=== PATIENT | female | born 1985 | race Hispanic/Latino ===

== ENCOUNTER 2020-06-17 10:11 | Inpatient (IN) | payer OTHER ==
[2020-06-17] MEDS ORDERED: METHYLERGONOVINE 0.2MG/ML AMP IM PRN (10:14)
[2020-06-17] MEDS ORDERED: CARBOPROST TROME 250 MCG/ML IM PRN (10:14)
[2020-06-17] MEDS ORDERED: Ringers Lactate 1,000 ML IV PRN (10:14)
[2020-06-17] MEDS ORDERED: CEFAZOLIN 2 GM in NA CHLORIDE 0.9% 100 ML IVP ONE (10:18)
--- OUTSIDE RECORDS SUMMARY | 2020-06-17 10:23 | XMS REPORT | Continuity of Care Document ---
:1985 Author Organization [facility] t Address [address] [place] [address] Care Team Providers Name Role Phone Eva Pelletier Attending Clinician Doctor Unassigned, Name Attending Clinician Unavailable Problems This patient has no known problems. Allergies, Adverse Reactions, Alerts This patient has no known allergies or adverse reactions. Medications This patient has no known medications. Procedures This patient has no known procedures. Encounters Start End Encounter Admission Attending Care Care Encounter Source Date/Time Date/Time Type Type Clinicians Facility Department ID 2019-12-20 2019-12-20 Telemedici Omari [facility] [id number] 13:00:44 13:21:25 ne Visit Cynthia Velasquez COMMUNICATION STUDIES PROFESSOR [id number] [facility] [id number] MATERNAL [id number] & CHILD 107 [facility] 2019-12-05 2019-12-05 Orders Doctor LIVE [id number] 00:00:00 00:00:00 Only Unassigned, HUMBERTO [id number] [place] [id number] 2019-11-23 2019-11-23 Telephone Omari [facility] [id number] 00:00:00 00:00:00 Cynthia Velasquez COMMUNICATION STUDIES PROFESSOR [id number] [facility] [id number] MATERNAL [id number] & CHILD 107 [facility] 2019-11-22 2019-11-22 [facility] [id number] 13:28:38 14:17:12 Cynthia Velaqsuez COMMUNICATION STUDIES PROFESSOR [id number] [facility] [id number] MATERNAL [id number] & CHILD [address] [place] [address] Results This patient has no known results.
[2020-06-17] MEDS ORDERED: CEFAZOLIN/SWI 2gm 2 GM/20 ML SYR IV ONE (10:30)
[2020-06-17] MEDS ORDERED: Ringers Lactate 1,000 ML IV SCH (11:00)
--- NOTE | 2020-06-17 11:31 | RAD REPORT ---
EXAM DESCRIPTION: RAD - Abdomen Single View - 06/17/2020 11:17 am CLINICAL HISTORY: . Assess presentation FINDINGS: The fetus is in a transverse lie. The head is maternal right within the abdomen/upper pelv is. The buttocks is maternal left. The feet are the closest body part to the cervix
[2020-06-17 12:30] LABS: Urine Appearance CLOUDY; Urine Bilirubin NEGATIVE (NEG); Urine Blood NEGATIVE (NEG); Urine Color YELLOW; Urine Glucose NEGATIVE (NEG); Urine Protein NEGATIVE (NEG); Urine Specific Gravity 1.015 (1.005-1.030); Urine Urobilinogen 0.2 mg/dL (0.2-1.0)
[2020-06-17 12:31] LABS: Urine Microscopic Reflex ORDER UMIC
[2020-06-17 12:35] LABS: Absolute Lymphocytes (CBC) 1.3 K/uL (0.7-4.9); Basophils % 0.4 % (0-1.3); Hematocrit 38.5 % (36.0-45.0); Lymphocytes % 18.1 % (15.3-44.8); MPV 9.4 fL (7.6-11.3); RBC Red Blood Cell Count 4.34 M/uL (3.86-4.86)
[2020-06-17 12:41] LABS: Urine Bacteria >50 /HPF (<20); Urine Culture Reflex Order REFLEXED
[2020-06-17 12:49] LABS: Protime INR 0.95
[2020-06-17] MEDS ORDERED: FAMOTIDINE 20 MG/2 ML VIAL IV ONE (13:17)
[2020-06-17] MEDS ORDERED: METOCLOPRAMIDE 10 MG/2mL INJ ONE (13:17)
[2020-06-17] MEDS ORDERED: NA CIT/CITRIC AC 30 ML ORAL UDC ONE (13:18)
[2020-06-17] MEDS ORDERED: MORPHINE SULFATE/PF 1 MG/ML (10 ML AMP) ONE (14:12)
[2020-06-17] MEDS ORDERED: BUPIVACAINE 0.75% (PF) 2 ML SP ONE (14:13)
[2020-06-17] MEDS ORDERED: LIDOCAINE 1% MPF 5 ML VIAL ONE (14:14)
[2020-06-17] MEDS ORDERED: OXYTOCIN 10 UNIT/ML ML IV ONE ×3 (14:21→14:42)
[2020-06-17] MEDS ORDERED: KETOROLAC 30 MG/ML INJ IM PRN (15:05)
[2020-06-17] MEDS ORDERED: BISACODYL 10 MG RECTAL SUPP PR PRN (15:05)
[2020-06-17] MEDS ORDERED: Oxycodone HCl/Acetaminophen 1 TAB TAB PO PRN (15:05)
[2020-06-17] MEDS ORDERED: ONDANSETRON 4 MG (ODT) TAB PO PRN (15:05)
[2020-06-17] MEDS ORDERED: DIPHENHYDRAMINE 25 MG TAB/CAP PO PRN (15:05)
[2020-06-17] MEDS ORDERED: ONDANSETRON 4 MG/2 ML VIAL IV PRN (15:05)
[2020-06-17] MEDS ORDERED: ACETAMINOPHEN 500 MG TAB PO PRN ×2 (15:05)
[2020-06-17] MEDS ORDERED: D5LR 1,000 ML with OXYTOCIN 20 UNIT IV SCH ×2 (16:00)
[2020-06-17 17:15] VITALS: BMI 34.9
[2020-06-17] MEDS: KETOROLAC 30 MG/ML INJ IV PRN (18:15)
[2020-06-17] MEDS ORDERED: Ringers Lactate 1,000 ML IV ONE (19:32)
[2020-06-17 20:12] VITALS: O2SAT 98
--- NOTE | 2020-06-17 20:55 | OP ---
Surgeon: Llye Belcher MD Indications: Jannet Cortez is a 34-year-old 3, para 2, 39 weeks gestation, breech-transvers e presentation, full preoperative counseling concerning procedure and possible complications includin g infection, blood loss, anesthetic complications, injury to bladder, bowel, ureter; postoperative co mplications; clots in legs and pneumonia. The patient knows very well this does not constitute all t he possible problems that could occur during or following surgery. Rh positive, immune to rubella, s trep positive, and COVID positive. Ancef 2 g was given for prophylaxis. Description Of Procedure: After spinal block anesthesia by Dr. Vang, prepping and draping was perfor med. Time-out was then performed. Dr. Fletcher for team assistant surgeon. A Pfannenstiel incision was cre ated. The incision was carried to the fascia. Fascia was incised and carried transversely bilateral ly. Anterior and posterior fascial planes were developed with both blunt and sharp dissection. Rect us muscle , peritoneum entered and retraction applied. Low transverse bladder flap develope d. Low transverse uterine incision created. An 8 pounds 12 ounces male was delivered without diffic ulty, converted to a mahogany breech and delivered. Apgars 9 and 9. Cord blood specimen obtained. Benita centa removed manually. Uterus cleared of clot and blood and exteriorized. Cervical os dilated with ring clamp. Uterus closed with a running lock stitch of 1 chromic followed by imbricating stitch of 1 chromic followed by 4-5 stitches in the right angle for complete hemostasis. Estimated blood loss 900 cc. Gutters clear of clot and blood. Uterus was replaced in the peritoneal cavity. Suture kulwinder e inspected. No further bleeding. The rectus muscles were reapproximated using 2 sutures of 0 Vicry l. The fascia was closed using 1 Vicryl running from either angle to the midline. Subcutaneous tiss ue was closed with 2-0 plain. Steven used for the skin. The patient tolerated all procedures well. Transferred back to her room in good condition. Final Diagnoses: Term intrauterine at 39 weeks, breech-transverse presentation, primary ce sarean section, spinal block anesthesia, strep positive, COVID positive. NBC/MODL Voice ID: [id number] Report ID: [id number]
[2020-06-17] MEDS: OXYTOCIN/LR 20 UNIT/1,000 ML BAG IV SCH (21:00)
[2020-06-17] MEDS ORDERED: CEFAZOLIN/SWI 2gm 2 GM/20 ML SYR IVP ONE (23:00)
[2020-06-18] MEDS: OXYTOCIN/LR 20 UNIT/1,000 ML BAG IV SCH (04:45)
[2020-06-18] MEDS: IBUPROFEN 600 MG TAB PO PRN ×2 (05:50→19:40)
--- NOTE | 2020-06-18 09:26 | PN ---
Postoperatively has done quite well. Afebrile. Output is good. Vital signs all normal. We will di scontinue Ward and IV. Begin ambulation. If all goes well, she will go home tomorrow. We went ove r dismissal instructions. We will go over those again tomorrow. She is COVID positive but again is having absolutely 0 symptoms. No post spinal block problems. We will offer her a flu shot and Tdap before she leaves. YUKO/CHUCK Voice ID: [id number] Report ID: [id number]
--- NOTE | 2020-06-18 11:00 | PREOPHP ---
Date of Admission: 06/17/2020 History Of Present Illness: A 34-year-old 3, para 2, 39 weeks, probably early labor. Baby h as been breech for some time now. Options given. We have decided to proceed with delivery. Infection, blood loss, anesthetic complications, injury to bladder, bowel, ureter, postoperative co mplications, clots in legs discussed. Patient knows fully well it does not constitute all the possib le problems that could occur during or following the surgery. Family History: Maternal grandmother and mother with diabetes. Allergies: NO ALLERGIES. Medications: vitamins prior to admission. Social History: Does not smoke. Physical Examination: HEENT: Clear. Pupils equal, round, reactive to light and accommodation. Conjunctivae well perfused . No oral, lingual, or buccal lesions. Chest and Lungs: Clear. Heart: Without murmurs, thrills, heaves, or rubs. Breasts: Not examined. Abdomen: Term size. Baby is at least 8 pounds or more. Extremities: Clear without edema, cyanosis, or clubbing. Cervix is fingertip with the presenting part high and has been breech on numerous visits. We will pr oceed with section sometime in the next few hours. YUKO/CHUCK Voice ID: [id number]
[2020-06-18] MEDS: KETOROLAC 30 MG/ML INJ IV PRN (12:05)
[2020-06-18] MEDS ORDERED: MAGNESIUM HYDROXIDE 8% 30 ML PO PRN (15:05)
[2020-06-18] MEDS: Oxycodone HCl/Acetaminophen 1 TAB TAB PO PRN (17:58)
[2020-06-18 21:37] LABS: RPR (Rapid Plasma Reagin) NON-REACT (NON-REACT)
[2020-06-19] MEDS: Oxycodone HCl/Acetaminophen 1 TAB TAB PO PRN ×2 (00:10→08:10)
[2020-06-19] MEDS ORDERED: Tdap (Diph,Pertuss(Acell),Tet Vac) 0.5 ML SYR IMVAC ONE (07:33)
[2020-06-19 08:02] VITALS: BP 96/60; TEMP 98
--- NOTE | 2020-06-19 10:32 | DS ---
Date of Discharge: 06/19/2020 Hospital Course: A 34-year-old 3, para 2, at 39 weeks, breech-transverse presentation, has b een stable in that position for more than a month. The patient was delivered of an 8-pound 12-ounce male infant, Apgars 9 and 9. Low transverse uterine incision. Spinal block anesthesia. Estimated b lood loss 900 cc. Rh positive. Immune to Rubella. Positive for COVID. Positive for strep. Postop eratively has done well, is afebrile, ambulating, and voiding. Lochia is normal. Will be dismissed later today. To report back to my office on Wednesday morning for staple removal. To report any temper ature elevation of 100 degrees or greater, severe pain, heavy bleeding, or any other type of abnormal ities. Dismissed with tramadol for analgesia. She knows this goes through the breast milk and we wi ll decide whether to take tramadol or Motrin. She is offered Tdap and flu shots. She has no post sp inal block problems. Final Diagnoses: Term intrauterine at 39 weeks, transverse presentation, primary section, spinal block anesthesia, positive for COVID, positive for strep. YUKO/MICHAELL Voice ID: [id number] Report ID: [id number]
[2020-06-19 20:12] LABS: HBsAG Nonreactive (Nonreactive)
== END 2020-06-19 09:30 | disposition home or self-care (01) | DRG 786 ==
LOC: 2ND-WC 10:11
PROVIDERS: ADMIT Specialist; ATTEND Specialist
PROC: 10907ZC Drainage of Amniotic Fluid, Therapeutic from Products of Conception, Via Natural or Artificial Opening (ICD-10-PCS; 2020-06-17)
PROC: 10D00Z1 Extraction of Products of Conception, Low, Open Approach (ICD-10-PCS; principal; 2020-06-17 13:30)
DX: O98.52 Other viral diseases complicating childbirth (principal); U07.1 COVID-19; O32.1XX0 Maternal care for breech presentation, not applicable or unspecified; O99.824 Streptococcus B carrier state complicating childbirth; Z3A.39 39 weeks gestation of pregnancy; Z37.0 Single live birth; Z23 Encounter for immunization
CPT/HCPCS: 36415; 74018; 81003; 81015; 82947; 85014; 85025; 85610; 85730; 86592; 86850; 86900; 86901; 87086; 87088; 87340; 88307; 90471; 90715; 99218; J0690; J2210; J2405; J2590; J2765; J7120; J7121; U0003